=== PATIENT | female | born 1965 | race Two or more races ===

== ENCOUNTER → 2021-01-16 11:23 | Outpatient (CLI) | payer OTHER | END | disposition home or self-care (01) | LOC: LAB 11:23 | DX: E03.8 Other specified hypothyroidism (principal); N95.1 Menopausal and female climacteric states; E55.9 Vitamin D deficiency, unspecified; N92.0 Excessive and frequent menstruation with regular cycle; E53.8 Deficiency of other specified B group vitamins; R68.82 Decreased libido; E78.2 Mixed hyperlipidemia ==

== ENCOUNTER 2021-02-04 09:08 | Outpatient (CLI) | payer OTHER | END 2021-02-04 09:18 | disposition home or self-care (01) | LOC: MAMO-SONO 09:08 | DX: Z12.31 Encounter for screening mammogram for malignant neoplasm of breast (principal); N64.4 Mastodynia; N64.89 Other specified disorders of breast ==

== ENCOUNTER 2021-11-14 08:00 | Outpatient (CLI) | payer OTHER | END 2021-11-14 08:30 | disposition home or self-care (01) | LOC: PPH VACUNA 08:00 | PROVIDERS: ATTEND Emergency Medicine Pediatric Emergency Medicine | DX: Z23 Encounter for immunization (principal) ==

== ENCOUNTER 2021-11-14 08:36 | Outpatient (CLI) | payer OTHER | END 2021-11-14 08:43 | disposition home or self-care (01) | LOC: LAB 08:36 | PROVIDERS: ATTEND Internal Medicine | DX: J30.89 Other allergic rhinitis (principal); I10 Essential (primary) hypertension; N39.0 Urinary tract infection, site not specified; E78.2 Mixed hyperlipidemia; K62.5 Hemorrhage of anus and rectum; E11.9 Type 2 diabetes mellitus without complications; M83.1 Senile osteomalacia; M06.4 Inflammatory polyarthropathy; E55.9 Vitamin D deficiency, unspecified; Z20.822 Contact with and (suspected) exposure to COVID-19; J11.1 Influenza due to unidentified influenza virus with other respiratory manifestations; Z20.828 Contact with and (suspected) exposure to other viral communicable diseases; E05.10 Thyrotoxicosis with toxic single thyroid nodule without thyrotoxic crisis or storm ==

== ENCOUNTER 2023-05-12 17:46 | Emergency (ER) | payer OTHER ==
[~2023-05-12] VITALS: Ht 162.6 cm; Wt 57.6 kg
[2023-05-12] MEDS ORDERED: PEPCID AC20 MG PO (22:49)
[2023-05-12] MEDS ORDERED: INTESTINEX680 M1 PO (22:49)
[2023-05-12] MEDS ORDERED: DICY20TA PO (22:49)
== END 2023-05-12 22:54 | disposition home or self-care (01) ==
LOC: ER 17:46
DX: R10.9 Unspecified abdominal pain (principal); E03.9 Hypothyroidism, unspecified; K52.9 Noninfective gastroenteritis and colitis, unspecified; D18.09 Hemangioma of other sites

== ENCOUNTER 2023-06-15 07:43 | Outpatient (CLI) | payer OTHER ==
[~2023-06-15 07:43] MED LIST: DICY20TA PO; INTESTINEX680 M1 PO; PEPCID AC20 MG PO
== END 2023-06-15 07:44 | disposition home or self-care (01) ==
LOC: LAB 07:43
DX: Z01.419 Encounter for gynecological examination (general) (routine) without abnormal findings (principal); N95.2 Postmenopausal atrophic vaginitis

== ENCOUNTER 2023-06-15 08:33 | Outpatient (CLI) | payer OTHER | END 2023-06-15 08:41 | disposition home or self-care (01) | LOC: MAMO-SONO 08:33 | DX: Z01.419 Encounter for gynecological examination (general) (routine) without abnormal findings (principal); N95.2 Postmenopausal atrophic vaginitis ==